=== PATIENT | female | born 1980 | race Hispanic/Latino ===

== ENCOUNTER 2017-06-29 20:28 | Emergency (ER) | payer SELFPAY ==
[2017-06-30] MEDS ORDERED: NORCO 5/325 ONE (06:19)
[2017-06-30] MEDS ORDERED: TORADOL IM ONE (07:11)
--- NOTE | 2017-06-30 07:11 | Emergency Department Report ---
HPI - General Chief Complaint: Extremity Injury, Lower Time Seen by Provider: 06/30/17 06:14 - HPI HPI: This is a 36-year-old female presents to the emergency department via EMS from [place] with complaint of a 2 to three-day history of lower extremity pain and swelling bilaterally from the feet to the knees. She feels as if her legs are swollen. She is currently at [place] secondary to bipolar disorder as a voluntary admission by was sent here for clearance from blood clots. She denies any past medical history. She has not taken anything for her symptoms prior to presentation. No skin color change, rash or lesions. She denies any history of previous DVT. ED Past Medical Hx - Past Medical History Previous Medical History?: Yes Hx Psychiatric Treatment: Yes (bipolar) - Surgical History Past Surgical History?: No - Social History Smoking Status: Never Smoker - Medications Home Medications: Home Medications Medication Instructions Recorded Confirmed Last Taken Type Ibuprofen [Motrin 600 MG tab] 600 mg PO Q8H PRN #20 tablet 06/30/17 Unknown Rx ED Review of Systems ROS: Stated complaint: BILATERAL LEG PAIN Other details as noted in HPI Comment: All other systems reviewed and negative Constitutional: denies: chills, fever Eyes: denies: eye pain, eye discharge, vision change ENT: denies: ear pain, throat pain Respiratory: denies: cough, shortness of breath, wheezing Cardiovascular: edema. denies: chest pain, palpitations Gastrointestinal: denies: abdominal pain, nausea, diarrhea Genitourinary: denies: urgency, dysuria, discharge Musculoskeletal: arthralgia, myalgia Skin: denies: rash, lesions Neurological: denies: headache, weakness, paresthesias Physical Exam - Physical Exam Vital Signs: Vital Signs 06/29/17 06/30/17 06/30/17 21:59 04:20 05:12 Temperature 98.2 F 98.4 F 98.7 F Pulse Rate 104 H 100 H 82 Respiratory 18 18 16 Rate Blood Pressure 143/83 121/7 Blood Pressure 134/73 [Left] O2 Sat by Pulse 100 100 Oximetry Physical Exam: GENERAL: The patient is well-developed well-nourished. HENT: Normocephalic. Atraumatic. Patient has moist mucous membranes. EYES: Extraocular motions are intact. Pupils equal reactive to light bilaterally. NECK: Supple. Trach is midline. CHEST/LUNGS: Clear to auscultation. There is no respiratory distress noted. HEART/CARDIOVASCULAR: Regular. There is no tachycardia. There is no gallop rub or murmur. ABDOMEN: Abdomen is soft, nontender. Patient has normal bowel sounds. There is no abdominal distention. SKIN: Skin is warm and dry. There is no appreciable edema. NEURO: The patient is awake, alert, and oriented. The patient is cooperative. The patient has no focal neurologic deficits. The patient has normal speech. MUSCULOSKELETAL: There is some mild tenderness palpation to the bilateral feet and distal lower extremities.. There is no limitation range of motion. There is no evidence of acute injury. ED Course Vital Signs 06/29/17 06/30/17 06/30/17 21:59 04:20 05:12 Temperature 98.2 F 98.4 F 98.7 F Pulse Rate 104 H 100 H 82 Respiratory 18 18 16 Rate Blood Pressure 143/83 121/7 Blood Pressure 134/73 [Left] O2 Sat by Pulse 100 100 Oximetry ED Medical Decision Making - Lab Data Result diagrams: 06/30/17 07:22 06/30/17 07:17 - Radiology Data Radiology results: report reviewed Venous Doppler of the bilateral lower extremities is negative for DVT. - Medical Decision Making 36-year-old female presents from [place] to rule out lower extremity DVT secondary to some recent pain and swelling. I do not see any appreciable swelling but the patient does complain of some discomfort. She was given something for pain. Labs are unremarkable. No signs of rhabdomyolysis. No signs of cellulitis. Venous Doppler negative. She will be discharged back to [place] where she is a voluntary admission. - Differential Diagnosis DVT, venous stasis, cellulitis, rhabdomyolysis Critical Care Time: No Critical care attestation.: If time is entered above; I have spent that time in minutes in the direct care of this critically ill patient, excluding procedure time. ED Disposition Clinical Impression: Medical clearance for psychiatric admission, Bilateral lower extremity pain Disposition: TO HOME OR SELFCARE Is pt being admited?: No Condition: Stable Instructions: Arthralgia (ED) Additional Instructions: Please follow up with a primary care physician when you're able to do so. Return to the emergency Department with any worsening of your symptoms or any acute distress. Prescriptions: Ibuprofen [Motrin 600 MG tab] 600 mg PO Q8H PRN #20 tablet PRN Reason: Pain Referrals: PRIMARY CARE, [Primary Care Provider] - 3-5 Days NAYA ELI MD [Staff Physician] - 3-5 Days [facility] [Outside] - 3-5 Days Time of Disposition: 08:51
[2017-06-30 07:41] LABS: Basophils % (Auto) 0.6 % (0.0-1.8); Hematocrit 33.4 % (30.3-42.9); Hemoglobin 10.4 gm/dl (10.1-14.3); Mean Corpuscular HGB Conc 31 % (30-34); Platelet Count 368 K/mm3 (140-440); Red Blood Count 5.23 M/mm3 (3.65-5.03); Red Cell Distribution Width 15.7 % (13.2-15.2); White Blood Count 8.3 K/mm3 (4.5-11.0)
[2017-06-30 07:51] LABS: Anion Gap 14 mmol/L; Blood Urea Nitrogen 5 mg/dL (7-17); Calcium 8.7 mg/dL (8.4-10.2); Carbon Dioxide 27 mmol/L (22-30); Chloride 104.3 mmol/L (98-107); Creatine Kinase 37 units/L (30-135); Glucose 86 mg/dL (65-100); Potassium 4.4 mmol/L (3.6-5.0); Sodium 141 mmol/L (137-145)
[2017-06-30 08:02] LABS: Mean Corpuscular Hemoglobin 20 pg (28-32); Mean Corpuscular Volume 64 fl (79-97)
[2017-06-30 09:21] VITALS: BP 120/71
== END 2017-06-30 11:45 | disposition home or self-care (01) ==
LOC: ED 20:28
DX: M79.605 Pain in left leg (principal); M79.604 Pain in right leg; F31.9 Bipolar disorder, unspecified
CPT/HCPCS: 36415; 80048; 82550; 85025; 93970; 96372; 99284; J1885